=== PATIENT | female | born 1990 | race Caucasian/White ===

== ENCOUNTER 2023-07-29 14:09 | Inpatient (IN) | payer MEDICAID, OTHER ==
[~2023-07-29] VITALS: Ht 175.3 cm; Wt 66.5 kg
[2023-07-29 15:23] LABS: COVID AG,FIA SOURCE NASAL SWAB
[2023-07-29 15:44] LABS: BASOPHILS % (AUTO) 0.5 % (0.0-2.0); EOSINOPHILS % (AUTO) 0.7 % (1.0-6.0); HEMATOCRIT 41.7 % (36-46); HEMOGLOBIN 14.4 g/dL (12.0-16.0); LYMPHOCYTES # (AUTO) 2.4 K/uL (1.0-4.8); LYMPHOCYTES % (AUTO) 30.5 % (22.0-44.0); MEAN CORPUSCULAR HEMOGLOBIN 29.1 pg (26.0-34.0); MEAN CORPUSCULAR HGB CONC 34.5 G/dL (31.0-37.0); MEAN CORPUSCULAR VOLUME 84 fL (80-100); MONOCYTES # (AUTO) 0.3 K/uL (0.1-1.0); MONOCYTES % (AUTO) 4.1 % (2.0-9.0); NEUTROPHILS % (AUTO) 64.2 % (40.0-70.0); PLATELET COUNT (AUTO) 418 K/uL (150-450); RED BLOOD CELL COUNT(AUTO) 4.95 MIL/uL (4.00-5.20); RED CELL DISTRIBUTION WIDTH 13.9 % (11.5-14.5); WHITE BLOOD COUNT (AUTO) 7.8 K/uL (4.5-11.0)
[2023-07-29 15:52] LABS: ANION GAP 8 mmol/L (8-16); CALCIUM, TOTAL 9.4 mg/dL (8.8-10.5); CARBON DIOXIDE 28 mmol/L (22-29); CHLORIDE 103 mmol/L (98-107); CREATININE 0.87 mg/dL (0.60-1.30); GLOMERULAR FILTR. RATE CALC > 60 mL/min (>60); GLUCOSE,RANDOM 102 mg/dL (70-110); POTASSIUM 3.7 mmol/L (3.5-5.1); SODIUM SERUM 139 mmol/L (136-145); UREA NITROGEN, BLOOD 12 mg/dL (7-18)
[2023-07-29 15:53] LABS: SARS-COV2 (COVID) ANTIGEN,FIA Negative (Negative)
[2023-07-29 15:58] LABS: ALCOHOL, BLOOD (SERUM) < 3 mg/dL (0-10)
[2023-07-29 16:03] LABS: ALANINE AMINOTRANSFERASE 29 U/L (12-78); ALBUMIN 4.2 g/dL (3.4-5.0); ALKALINE PHOSPHATASE 65 U/L (46-116); ASPARTATE AMINOTRANSFERASE 13 U/L (15-37); BILIRUBIN,TOTAL 0.5 mg/dL (0.1-1.0); HCG,QUANTITATIVE 1 mIU/mL (0-6); TOTAL PROTEIN, SERUM 8.2 g/dL (6.4-8.2)
[2023-07-29] MEDS: LORazepam 2 MG TABLET PO PRN ×2 (19:37→22:30)
[2023-07-29] MEDS: ZOLPIDEM TARTRATE 10 MG TABLET PO PRN (22:29)
[2023-07-30] MEDS ORDERED: ONDANSETRON HCL 4 MG TABLET PO PRN (05:45)
[2023-07-30] MEDS ORDERED: BACITRACIN 28 GM OINTMENT TP PRN (05:45)
[2023-07-30] MEDS ORDERED: DOCUSATE SODIUM 100 MG CAPSULE PO PRN (05:45)
[2023-07-30] MEDS ORDERED: LOPERAMIDE HCL 2 MG CAPSULE PO PRN (05:45)
[2023-07-30] MEDS ORDERED: OMEPRAZOLE 20 MG CAPSULE PO PRN (05:45)
[2023-07-30] MEDS ORDERED: ALBUTEROL SULFATE HFA 90 MCG/PUFF 8 GM INHALER IH PRN (05:45)
[2023-07-30] MEDS ORDERED: IBUPROFEN 600 MG TABLET PO PRN (05:45)
[2023-07-30] MEDS ORDERED: MAGNESIUM HYDROXIDE SUSPENSION 30 ML UDCUP PO PRN (05:45)
[2023-07-30] MEDS ORDERED: BENZOCAINE/MENTHOL LOZENGE PO PRN (05:45)
[2023-07-30] MEDS ORDERED: MAG HYDROX/ALUMINUM HYD/SIMETH ES 30 ML SUSPENSION UDCUP PO PRN (05:45)
[2023-07-30] MEDS ORDERED: CloNIDine HCL 0.1 MG TABLET PO PRN (05:45)
[2023-07-30] MEDS ORDERED: ACETAMINOPHEN 325 MG TABLET PO PRN (05:45)
[2023-07-30] MEDS ORDERED: PETROLATUM,WHITE 28 GM JELLY TP PRN (05:45)
[2023-07-30] MEDS: HALOPERIDOL 5 MG TABLET PO PRN ×2 (08:04→16:55)
[2023-07-30] MEDS: LORazepam 2 MG TABLET PO PRN ×2 (08:04→16:55)
[2023-07-30 08:15] VITALS: BP 100/66; PULSE 81; RESP 16; TEMP 97.9; O2SAT 97
[2023-07-30] MEDS: ZOLPIDEM TARTRATE 10 MG TABLET PO PRN (20:02)
[2023-07-30] MEDS: OLANZapine 7.5 MG TABLET PO SCH (20:03)
[2023-07-30 20:11] VITALS: BP 90/60; PULSE 87; RESP 18; TEMP 97.6; O2SAT 99
[2023-07-31 08:04] VITALS: BP 98/68; PULSE 79; RESP 16; TEMP 97.3; O2SAT 96
[2023-07-31] MEDS: SERTRALINE HCL 50 MG TABLET PO SCH (08:11)
[2023-07-31] MEDS: ZOLPIDEM TARTRATE 10 MG TABLET PO PRN (20:01)
[2023-07-31] MEDS: OLANZapine 7.5 MG TABLET PO SCH (20:01)
[2023-07-31 20:04] VITALS: BP 108/62; PULSE 98; RESP 18; TEMP 97.8; O2SAT 97
[2023-07-31] MEDS: LORazepam 2 MG TABLET PO PRN (22:38)
[2023-07-31] MEDS: HALOPERIDOL 5 MG TABLET PO PRN (22:38)
[2023-08-01 08:07] VITALS: BP 105/64; PULSE 101; RESP 18; TEMP 98.7; O2SAT 98
[2023-08-01] MEDS: SERTRALINE HCL 50 MG TABLET PO SCH (08:14)
[2023-08-01] MEDS: MULTIVITAMINS WITH MINERALS, THERAPEUTIC TABLET PO SCH (08:14)
[2023-08-01] MEDS: LORazepam 2 MG TABLET PO PRN ×2 (09:57→17:00)
[2023-08-01] MEDS: HALOPERIDOL 5 MG TABLET PO PRN ×3 (09:57→22:00)
[2023-08-01 16:56] VITALS: BP 103/68; PULSE 78; RESP 18; TEMP 98.1; O2SAT 92
[2023-08-01] MEDS: OLANZapine 7.5 MG TABLET PO SCH (20:01)
[2023-08-01 20:04] VITALS: BP 101/72; PULSE 94; RESP 18; TEMP 97.4; O2SAT 96
[2023-08-01] MEDS: ZOLPIDEM TARTRATE 10 MG TABLET PO PRN (22:00)
[2023-08-02] MEDS: MULTIVITAMINS WITH MINERALS, THERAPEUTIC TABLET PO SCH (08:14)
[2023-08-02] MEDS: SERTRALINE HCL 50 MG TABLET PO SCH (08:14)
[2023-08-02 08:19] VITALS: RESP 18
[2023-08-02] MEDS: LORazepam 2 MG TABLET PO PRN (11:17)
[2023-08-02] MEDS: HALOPERIDOL 5 MG TABLET PO PRN ×2 (11:17→23:06)
[2023-08-02 20:03] VITALS: BP 100/69; PULSE 93; RESP 18; TEMP 96.8
[2023-08-02] MEDS: ZOLPIDEM TARTRATE 10 MG TABLET PO PRN (20:50)
[2023-08-02] MEDS: OLANZapine 7.5 MG TABLET PO SCH (20:50)
[2023-08-03 00:20] VITALS: BP 105/74; PULSE 103; RESP 18; TEMP 97
[2023-08-03 01:23] VITALS: RESP 18
[2023-08-03 02:33] VITALS: RESP 18
[2023-08-03] MEDS: SERTRALINE HCL 50 MG TABLET PO SCH (08:02)
[2023-08-03] MEDS: MULTIVITAMINS WITH MINERALS, THERAPEUTIC TABLET PO SCH (08:02)
[2023-08-03 08:06] VITALS: BP 101/78; PULSE 83; RESP 16; TEMP 97.6; O2SAT 96
[2023-08-03] MEDS ORDERED: OLAN7.5T22 PO ×2 (10:53→10:59)
[2023-08-03] MEDS ORDERED: SERT-158 PO (10:54)
[2023-08-03] MEDS ORDERED: SERT-439 PO (10:59)
== END 2023-08-03 11:30 | disposition home or self-care (01) | DRG 753 ==
LOC: EMS 14:09 → B3A 19:30
PROVIDERS: ADMIT Psychiatry & Neurology Psychiatry; ATTEND Psychiatry & Neurology Psychiatry
DX: F31.9 Bipolar disorder, unspecified (principal); R45.851 Suicidal ideations; F41.9 Anxiety disorder, unspecified; G47.00 Insomnia, unspecified; K59.00 Constipation, unspecified; Z20.822 Contact with and (suspected) exposure to COVID-19
CPT/HCPCS: 80053; 84702; 85025; 99285; G0480